=== PATIENT | female | born 1935 | race Caucasian/White ===

== ENCOUNTER → 2016-11-13 17:56 | Outpatient (CLI) | payer MEDICARE, OTHER ==
[2016-10-08 04:00] VITALS: BMI 29.9
[~2016-11-13 17:56] MED LIST: CELEXA10 MG PO; COUMADIN4 MG PO; ELIQUIS2.5 MG PO; HYDROCODON-ACE1 EAC7 PO; JANTOVEN6 MG PO; MACROBID100 MG PO; PRAVASTATIN SOD10 MG; PRAVASTATIN SOD10 MG PO; QUESTRAN PACK4 G/PKT PO; SENOKOT-S TABLE1 TAB PO; ZIAC 2.5/6.25 M1 TAB PO
[2016-11-13 20:15] LABS: INR 2.92 (0.85-1.17); PROTIME 30.7 SECONDS (11.6-15.0)
== END | disposition home or self-care (01) ==
LOC: D.LABREF 17:56
PROVIDERS: Internal Medicine Interventional Cardiology
DX: Z51.81 Encounter for therapeutic drug level monitoring (principal); Z79.01 Long term (current) use of anticoagulants

== ENCOUNTER → 2016-11-27 12:33 | Outpatient (CLI) | payer MEDICARE, OTHER ==
[2016-10-08 04:00] VITALS: BMI 29.9
[2016-11-27 13:05] LABS: INR 3.45 (0.85-1.17); PROTIME 35.2 SECONDS (11.6-15.0)
== END | disposition home or self-care (01) ==
LOC: D.LABREF 12:33
PROVIDERS: Internal Medicine Interventional Cardiology
DX: Z51.81 Encounter for therapeutic drug level monitoring (principal); Z79.01 Long term (current) use of anticoagulants

== ENCOUNTER → 2017-02-19 13:54 | Outpatient (CLI) | payer MEDICARE, OTHER ==
[2016-10-08 04:00] VITALS: BMI 29.9
== END | disposition home or self-care (01) ==
LOC: D.NM 13:54
DX: K62.5 Hemorrhage of anus and rectum (principal)

== ENCOUNTER 2017-04-01 15:38 | Observation (INO) | payer MEDICARE, OTHER ==
[~2017-04-01] VITALS: Ht 167.6 cm; Wt 76.7 kg
--- NOTE | ~2017-04-01 | PRO ---
PATIENT:GUILHERME STEVENOSN MEDICAL RECORD: [id number] : 31 LOCATION:D[id number] ADMISSION DATE: 04/01/17 PROCEDURE PERFORMED BY: TAYO MCKINNEY MD DATE OF PROCEDURE: 04/03/2017 BARRELHEAD INSPECTOR: Tayo Mckinney MD. PROCEDURE: Flexible sigmoidoscopy with hemorrhoidal banding times 5. INDICATION: The patient is an 82-year-old white female who is basically admitted with recurrent problems of hematochezia since starting Xarelto. She had a colonoscopy a little less than 10 years ago that was normal, there is evidence of small internal hemorrhoids and mild sigmoid diverticulosis. We have not seen her since. Over the past year or so, since she started Xarelto, she has off and on hematochezia. She did require transfusion as of yet. She is now for sigmoidoscopy. PREMEDICATION: TIVA anesthesia. INSTRUMENT: Olympus video adjustable colonoscope and then gastroscope. FINDINGS: Rectal exam was normal. The colonoscope passed through the rectum into the splenic flexure without difficulty. The exam was remarkable for brown stool, mild sigmoid diverticulosis and moderate friable internal hemorrhoids on retroflexion of the rectum. There were no mass, lesions or polypoid lesions seen. I then elected to band her hemorrhoids. This was done by removing the colonoscope and placing 7-shooter group fitness manager on the tip of the gastroscope and inserting into the patient. Using retroflexed view, I placed 5 hemorrhoid bands just proximal to the dentate line in a circumferential manner. The patient tolerated the procedure well without any immediate complications. IMPRESSION: 1. Moderate-sized friable internal hemorrhoids, now status post hemorrhoidal banding times 5 as noted above. 2. Mild sigmoid diverticulosis. 3. Otherwise normal sigmoidoscopy. 4. Hematochezia obviously due to her hemorrhoids and Xarelto PLAN: 1. Avoid constipation and straining with bowel movement. 2. We will see her on as needed basis. 3. Consider repeat hemorrhoid banding in the future as needed. TRANSINT:[id number] Voice Confirmation ID: [id number] DOCUMENT ID: [id number] PROCEDURE NOTE [id number] GUILHERME STEVENSON TAYO MCKINNEY MD CC: TAYO GAMBINO MD [id number] DICTATION DATE: 04/03/17 1235 SORT WORKER: 04/04/17 1054 DIS IN 04/03/17 [facility] [address] [place] [address]
[2017-04-01 16:36] LABS: BASOPHILS 0.6 % (0-2); EOSINOPHILS 3.9 % (0-7); HEMATOCRIT 40.6 % (36.0-48.0); HEMOGLOBIN 13.4 g/dL (12-16); IMMATURE GRANULOCYTES 0.1 % (0-5); LYMPHOCYTES 36.1 % (15-50); MCH 30.6 pg (26.0-34.0); MCV 92.7 fL (80.0-100.0); MEAN PLATELET VOLUME 12.9 fL (7.4-10.4); NEUTROPHILS 46.3 % (40-80); PLATELET COUNT 126 10x3/uL (130-400); RBC 4.38 10x6/uL (4.00-5.40); RDW 13.1 % (11.5-14.5); WBC 7.7 10x3/uL (4.8-10.8)
[2017-04-01 16:55] LABS: ALBUMIN 3.6 g/dL (3.4-5.0); ANION GAP 12.5 mmol/L (8-16); BILIRUBIN - TOTAL 0.91 mg/dL (0.2-1.3); CARBON DIOXIDE 29.1 mmol/L (21.0-32.0); POTASSIUM - SERUM 3.6 mmol/L (3.5-5.1); PROTEIN - SERUM 7.7 g/dL (6.4-8.2)
[2017-04-01 17:02] LABS: APTT 31.7 SECONDS (22.8-39.4); INR 1.51 (0.85-1.17); PROTIME 18.1 SECONDS (11.6-15.0)
--- NOTE | 2017-04-01 19:30 | NUR ---
REC'D PER STRETCHER FROM ER DEPT AN 82 Y/O W/F PER SERVICES DR. GAMBINO WITH DX.LOWER GI BLEED. SALINE LOCK PATENT LEFT HAND. SITE CLEAR ALLERGY:MILK. SPLINT TO RT INDEX FINGER FROM A RECENT FX FROM A FALL.
[2017-04-01 20:00] VITALS: BP 115/49
[2017-04-01 20:38] VITALS: BP 115/49; BMI 27.3
[2017-04-01 21:55] LABS: HEMATOCRIT 37.9 % (36.0-48.0); HEMOGLOBIN 12.7 g/dL (12-16)
[2017-04-01] MEDS ORDERED: LEVSIN/ANASP0.125 MG PO (21:57)
--- NOTE | 2017-04-01 22:00 | NUR ---
NS INFUSING AT 75CC'S/HR. DR. MORALES VISITED.
[2017-04-01] MEDS ORDERED: DOXYCYCLINE HY100 M2 PO (22:03)
[2017-04-02] VITALS: BP 110/52
--- NOTE | 2017-04-02 | NUR ---
EYES CLOSED RESPIRATIONS WITH EASE AND UNLABORED.
[2017-04-02] MEDS ORDERED: VOLTAREN100 GM TOPICAL (00:47)
[2017-04-02] MEDS ORDERED: METAMUCIL PACKE1 PKT PO (00:48)
[2017-04-02] MEDS ORDERED: PROBIOTIC1 EAC1 PO (00:48)
[2017-04-02] MEDS ORDERED: DOXYCYCLINE HY100 M2 PO (00:49)
[2017-04-02] MEDS ORDERED: XARELTO20 MG PO (00:50)
[2017-04-02] MEDS ORDERED: CYCLOBENZAPRINE5 MG PO (00:52)
[2017-04-02] MEDS ORDERED: ULTRAM50 MG PO (00:52)
[2017-04-02] MEDS ORDERED: QUESTRAN PACK4 G/PKT PO (00:54)
[2017-04-02] MEDS ORDERED: ANUSOL-HC25 MG RC (01:01)
[2017-04-02] MEDS ORDERED: IBUPROFEN200 MG PO (01:02)
[2017-04-02] MEDS ORDERED: ELUXADOLINE 100 MG PO (01:13)
--- NOTE | 2017-04-02 03:37 | NUR ---
RESTING QUIETLY DENIES NEEDS.
[2017-04-02 05:19] LABS: HEMATOCRIT 38.2 % (36.0-48.0); HEMOGLOBIN 12.4 g/dL (12-16)
--- NOTE | 2017-04-02 07:15 | NUR ---
REPORT RECEIVED FROM DATA ANALYST ETL DEVELOPER NURSE. CALL LIGHT IN REACH.
--- NOTE | 2017-04-02 08:15 | NUR ---
PATIENT IN MID DIEHL POSITION RESTING QUIETLY. RESPIRATIONS EVEN AND UNLABORED. DENIES NEEDS. SIDE RAILS UP X2. BED IN LOW POSITION. CALL LIGHT IN REACH.
[2017-04-02 08:32] VITALS: BP 136/56
--- NOTE | 2017-04-02 09:30 | NUR ---
ASSESSMENT COMPLETED. CALL LIGHT IN [facility]. WILL CONTINUE WITH PLAN OF CARE.
--- NOTE | 2017-04-02 11:51 | NUR ---
PATIENT IS LAYING IN BED, HOB 40 DEGREES. RESPIRATIONS ARE EVEN AND UNLABORED. NO SIGNS OF DISTRESS NOTED. BED IN LOWEST POSITION, CALL LIGHT IN REACH. BED RIALS UP X'S 2. FINGER SPLINT ON AND INTACT. PATIENT'S FAMILY MEMBER IS AT BEDSIDE, BOTH DENY NEEDS AT THIS TIME.
[2017-04-02 12:51] VITALS: BP 136/56
[2017-04-02 12:59] VITALS: BP 116/48
[2017-04-02 13:07] VITALS: Ht 167.6 cm; Wt 76.7 kg
--- NOTE | 2017-04-02 13:20 | NUR ---
NO NEEDS VOICED AT THIS TIME. CALL LIGHT IN REACH.
[2017-04-02 13:59] LABS: HEMATOCRIT 36.6 % (36.0-48.0)
--- NOTE | 2017-04-02 15:34 | NUR ---
AFTERNOON MEDS ADMINISTERED. CALL LIGHT IN REACH.
--- NOTE | 2017-04-02 16:50 | NUR ---
DENIES NEEDS AT THIS TIME. CALL LIGHT IN REACH.
--- NOTE | 2017-04-02 18:30 | NUR ---
NO CHANGES IN INITIAL ASSESSMENT. CALL LIGHT IN REACH. CRISS MAT ALARM ON.
[2017-04-02 20:00] VITALS: BP 116/50
--- NOTE | 2017-04-02 20:00 | NUR ---
ASSESSMENT PER FLOWSHEET. IV PATENT LEFT HAND OF NS AT 75CC'S/HR SITE CLEAR. SPLINT IMMOBILIZER IN PLACE TO RT INDEX FINGER. RESTING QUIETLY DENIES NEEDS. SR UP X2 CALL LIGHT WITHIN REACH.
--- NOTE | 2017-04-02 21:22 | HP ---
PATIENT: GUILHERME STEVENSON MEDICAL RECORD: [id number] ACCOUNT: [id number] LOCATION:D.[id number] : 31 ADMISSION DATE: 04/01/17 HISTORY AND PHYSICAL EXAMINATION DATE OF ADMISSION: 04/01/2017. CHIEF COMPLAINT: Blood per rectum. HISTORY OF PRESENT ILLNESS: This is an 82-year-old female followed by Dr. Noyola in our office. She tells me that she has had rectal bleeding for a couple of days now, is bright red, she may have a little pain, but not too much. I have reviewed records from our office and the patient was actually seen by Dr. Noyola on 02/18/2017 complaining of bright red blood per rectum. She had some blood work done and I asked the patient if she remembered going to see Dr. Noyola about this visit, she stated she does not remember that at all. ____ note the patient has an acute memory issue or she has long-term or worsening issues. She did have heme-positive rectal test in the ER. Her hemoglobin is 12.7, hematocrit is 37.9. Review of family medicine clinic records on 02/18/2017, her hemoglobin was 12.5 and hematocrit 38.8. PAST MEDICAL AND SURGICAL HISTORY: The patient has arthritis, atrial fibrillation, depression, hyperlipidemia, irritable bowel syndrome. PAST SURGICAL HISTORY: Hysterectomy. HOME MEDICATIONS: (This is the best list that I can come up which she takes Viberzi 100 mg daily, Voltaren gel daily, citalopram 10 mg daily, pravastatin 10 mg daily, bisoprolol/HCTZ 2.5/6.25 once a day, Xarelto 20 mg once a day. She takes tramadol p.r.n. pain, hydrocodone 5 p.r.n. pain, cyclobenzaprine 5 p.r.n. muscle spasm. DRUG ALLERGIES: Unknown. HABITS: Never smoked. No alcohol or drugs. SOCIAL HISTORY: She is retired, lives in the [facility] with assisted living. Her daughter lives ____ and is her POA. FAMILY HISTORY: Parents are . Father reportedly of renal cell cancer. REVIEW OF SYSTEMS: GENERAL: She denies any major weight changes. HEENT: No particular sinus or allergy problems. RESPIRATORY: No history of asthma or emphysema. CARDIAC: No known coronary artery disease. She has atrial fibrillation, on Xarelto for the last few months (reported that she was on Coumadin prior to that). GASTROINTESTINAL: She has irritable bowel. Dr. Bobby is her energy advisor since initial exam on 12/25/2016. MUSCULOSKELETAL: She has arthritic aches and pains. NEUROLOGIC: No significant headaches or seizures. Her mental status is unknown. The patient states her daughter can answer those questions. PSYCHIATRIC: She has some depression. HISTORY AND PHYSICAL [id number] GUILHERME STEVENSON PHYSICAL EXAMINATION: VITAL SIGNS: Today, temperature 98.1, pulse 60, respirations 20, blood pressure 115/49, O2 sat 93%. GENERAL: She is easily awakened tonight. She does not appear in acute distress. SKIN: Warm and dry. HEENT: Grossly within normal limits. NECK: Supple. No JVD or bruit. HEART: Regular rate and rhythm at this time. LUNGS: Fairly clear. ABDOMEN: Soft, flat, nontender. EXTREMITIES: No edema. LABORATORY WORK: CBC with a white count 7700, hemoglobin 12.7, hematocrit 37.9, platelets number 126,000. INR 1.5. LFTs are normal. Basic metabolic panel is okay except BUN 25. The last CBC and basic metabolic panel in our office on 02/18/2017, these were similar, hemoglobin was 12.5, hematocrit 38.8. Rectal exam in the ER was reportedly heme-positive. ASSESSMENT: 1. Heme-positive stool. 2. Atrial fibrillation on Xarelto. PLAN: Gastrointestinal has been consulted, ____ and Dr. Bobby's nurse practitioner note from 12/25/2016, the patient does not wish to have any further colonoscopies, so not really sure about further workup is going be done. Again over a month ago, her hemoglobin was actually a little bit lower than it is now. Dr. Noyola had ordered a bleeding scan and that was done at [facility] on 02/19/2017. The bleeding scan showed no obvious signs of bleeding. Other tests and procedures as warranted. TRANSINT:[id number] Voice Confirmation ID: [id number] DOCUMENT ID: [id number] SHANTHI MORALES MD at 2122 CC: [id number] DICTATION DATE: 04/02/1730 CARDIOPULMONARY TECHNICIAN AND EEG TECH: 04/02/17 0110 ADM IN [facility] [address] [id number]
--- NOTE | 2017-04-02 21:30 | NUR ---
MEDS GIVEN PER MAR.
--- NOTE | 2017-04-02 23:57 | NUR ---
NPO FOR GI LAB PROCEDURE IN AM.
--- NOTE | 2017-04-03 02:00 | NUR ---
ON BEDPAN HAD LARGE SOFT FORMED STOOL.
[2017-04-03 04:00] VITALS: BP 120/67
--- NOTE | 2017-04-03 05:15 | NUR ---
FLEETS ENEMA X2 GIVEN RECTALLY. LARGE SOFT BROWN STOOL RETURNED.
[2017-04-03 05:21] LABS: BASOPHILS 0.2 % (0-2); EOSINOPHILS 2.2 % (0-7); HEMATOCRIT 37.2 % (36.0-48.0); HEMOGLOBIN 12.1 g/dL (12-16); IMMATURE GRANULOCYTES 0.2 % (0-5); LYMPHOCYTES 19.7 % (15-50); MCH 29.7 pg (26.0-34.0); MCHC 32.5 g/dL (31.0-37.0); MCV 91.4 fL (80.0-100.0); MEAN PLATELET VOLUME 12.8 fL (7.4-10.4); MONOCYTES 11.9 % (2-11); NEUTROPHILS 65.8 % (40-80); PLATELET COUNT 115 10x3/uL (130-400); RBC 4.07 10x6/uL (4.00-5.40); RDW 12.9 % (11.5-14.5); WBC 9.1 10x3/uL (4.8-10.8)
[2017-04-03 05:35] LABS: ANION GAP 9.5 mmol/L (8-16); CALCIUM 9.1 mg/dL (8.5-10.1); CARBON DIOXIDE 26.9 mmol/L (21.0-32.0); POTASSIUM - SERUM 3.4 mmol/L (3.5-5.1)
--- NOTE | 2017-04-03 06:14 | NUR ---
EYE CLOSED RESPIRATIONS WITH EASE AND UNLABORED.
--- NOTE | 2017-04-03 07:15 | NUR ---
REPORT RECEIVED FROM DIGITAL MEDIA INTERN NURSE. CALL LIGHT IN REACH.
[2017-04-03 08:06] VITALS: BP 153/66
--- NOTE | 2017-04-03 08:15 | NUR ---
ASSESSMENT COMPLETED. CALL LIGHT IN REACH. WILL CONTINUE WITH PLAN OF CARE.
--- NOTE | 2017-04-03 08:35 | NUR ---
PT ASLEEP AT THIS TIME WITH NO VISABLE SIGNS OF PAIN OR DISCOMFORT. BED IN LOW POSITION AND CALL LIGHT WITHIN REACH. WILL CONTINUE TO MONITOR.
--- NOTE | 2017-04-03 10:05 | NUR ---
INCONTINENT OF URINE. PARTIAL BED BATH GIVEN AND LINENS CHANGED.
--- NOTE | 2017-04-03 11:20 | NUR ---
TO GI LAB VIA BED.
--- NOTE | 2017-04-03 11:34 | CN ---
PATIENT NAME:GUILHERME STEVENSON MEDICAL RECORD: [id number] : 31 LOCATION:D.[facility] ADMIT DATE: 04/01/17 ACCOUNT: [id number] CONSULTING PHYSICIAN: TAYO SCHMID MD REFERRING PHYSICIAN: TAYO GAMBINO MD DATE OF CONSULTATION: 04/02/2017 GASTROINTESTINAL CONSULTATION DATE OF CONSULTATION: 04/02/2017. REFERRING PHYSICIAN: Dr. Gambino. HISTORY OF PRESENT ILLNESS: The patient is an 82-year-old white female with history of dementia, lives at the [facility], basically was admitted because of chronic recurrent hematochezia felt to be hemorrhoidal in nature. She had intermittent episodes of bleeding ever since she started Xarelto several months ago. On chart review, she does have a remote history of colon polyps underwent a surveillance colonoscopy in May of 2008, there was normal other than mild sigmoid diverticulosis and small internal hemorrhoids. I saw her once again in December of 2008 because of dysphagia. She underwent an EGD that was basically normal other than minimal stenosis requiring dilation of her esophagus with a 54-[place] Savary dilator. I have not seen her since then. PAST MEDICAL HISTORY: As above. She has cerebrovascular disease, status post CVA. She has AFib. She has DJD, depression, hyperlipidemia and IBS. PAST SURGICAL HISTORY: Remarkable for hysterectomy. HOME MEDICATIONS: Include Viberzi, Voltaren gel, Celexa, pravastatin, bisoprolol/HCTZ, Xarelto, tramadol, hydrocodone, cyclobenzaprine. ALLERGIES: No known drug allergies. SOCIAL HISTORY: The patient is a nonsmoker, nondrinker. FAMILY HISTORY: Negative for GI disease. REVIEW OF SYSTEMS: Noncontributory other than HPI. PHYSICAL EXAMINATION: GENERAL: Reveals an elderly, somewhat demented white female in no acute distress. VITAL SIGNS: Stable. She is afebrile. CHEST: Clear. HEART: Regular rate and rhythm. ABDOMEN: Soft, nontender. EXTREMITIES: Reveal no edema. LABORATORY DATA: Reveals a white count of 7000, hematocrit 37, MCV of 92, platelet count 126,000. Electrolytes normal. BUN and creatinine are normal. Liver enzymes are normal. INR is 1.5. IMPRESSION: 1. Chronic intermittent hematochezia, almost certainly due to internal CONSULT REPORT [id number] HENEGAR,THORDES JAYSON hemorrhoids on top of Xarelto use. However, it has been 9 years since colonoscopy and so other etiologies have to be considered. 2. Remote history of colon polyps. 3. History of dementia and CVA and AFib, on Xarelto. RECOMMENDATION: Flex sig with possible hemorrhoidal banding in a.m. TRANSINT:[id number] Voice Confirmation ID: [id number] DOCUMENT ID: [id number] TAYO SCHMID MD at 1134 CC: TAYO GAMBINO MD [id number] DICTATION DATE: 04/02/17 180 FINISHING INSPECTOR: 04/03/17 0154 ADM IN [facility] [address] [place] [address]
--- NOTE | 2017-04-03 12:32 | NUR ---
1230 BANDING X5
[2017-04-03 13:56] LABS: HEMOGLOBIN 12.9 g/dL (12-16)
--- NOTE | 2017-04-03 15:32 | NUR ---
REPORT CALLED TO THE [facility].
--- NOTE | 2017-04-03 15:37 | NUR ---
DC'D TO VEHICLE VIA WC WITH [facility] RAIL MANAGER.
== END 2017-04-03 15:38 | disposition home or self-care (01) ==
LOC: D.ER 15:38 → D.MS 18:02 → OBSVTIME 18:02 → D.MS 04-03 15:38
PROVIDERS: Emergency Medicine; ADMIT Family Medicine
DX: K64.8 Other hemorrhoids (principal); I48.91 Unspecified atrial fibrillation; Z79.01 Long term (current) use of anticoagulants; F32.9 Major depressive disorder, single episode, unspecified; E78.5 Hyperlipidemia, unspecified; K58.0 Irritable bowel syndrome with diarrhea; K57.90 Diverticulosis of intestine, part unspecified, without perforation or abscess without bleeding

== ENCOUNTER → 2017-12-26 16:56 | Outpatient (CLI) | payer MEDICARE, OTHER ==
[2017-04-02 13:07] VITALS: BMI 27.2
[~2017-12-26 16:56] MED LIST changes: +ANUSOL-HC25 MG RC; +CYCLOBENZAPRINE5 MG PO; +DOXYCYCLINE HY100 M2 PO; +ELUXADOLINE 100 MG PO; +IBUPROFEN200 MG PO; +LEVSIN/ANASP0.125 MG PO; +METAMUCIL PACKE1 PKT PO; +PROBIOTIC1 EAC1 PO; +ULTRAM50 MG PO; +VOLTAREN100 GM TOPICAL; +XARELTO20 MG PO
[2017-12-26 18:12] LABS: APPEARANCE CLEAR (CLEAR); BILIRUBIN NEGATIVE (NEGATIVE); COLOR DK YELLOW (YELLOW); GLUCOSE NEGATIVE (NEGATIVE); KETONE NEGATIVE (NEGATIVE); NITRITE POSITIVE (NEGATIVE); PROTEIN NEGATIVE (NEGATIVE); SPECIFIC GRAVITY 1.015 (1.005-1.020); UROBILINOGEN NORMAL (NORMAL)
[2017-12-26 18:14] LABS: EPITHELIAL CELLS 0-5 /hpf (0-5); RED CELLS - URINE 0-5 /hpf (0-5); WHITE CELLS - URINE 0-5 /hpf (0-5)
[2017-12-26 18:15] LABS: BACTERIA FEW /hpf (NONE SEEN)
== END | disposition home or self-care (01) ==
LOC: D.LABREF 16:56
PROVIDERS: Family Medicine
DX: N39.0 Urinary tract infection, site not specified (principal); R53.1 Weakness